=== PATIENT | male | born 1960 ===

== ENCOUNTER 2016-11-19 13:47 | Emergency (ER) | payer BC ==
--- NOTE | 2016-11-19 15:07 | ED ---
Skin Complaint - HPI Summary HPI Summary: 56 male presents with complaints of redness and itchiness to the right breast that began 2 days ago and has been worsening. Patient states there was scab that he scratched off and does not know if he was possibly bit by a bug. Since scratching scab off he has had increased redness and itching to the area. No complaint of rash elsewhere. Has had similar episode on back a while back. Denies taking any medication for his symptoms. Denies fever/chills, lethargy or joint pain. Denies being bit by tick. No other complaints. States he tried squeezing it however nothing came out. - History of Current Complaint Chief Complaint: EDRashSkinAbscess Time Seen by Provider: 11/19/16 14:16 Stated Complaint: RT CHEST REDNESS/ITCHING Hx Obtained From: Patient Onset/Duration: Started Days Ago - 2 Skin Exposure Onset/Duration: Days Ago - 3-4 Timing: Constant Onset Severity: Mild Current Severity: Moderate Pain Intensity: 3 Pain Scale Used: 0-10 Numeric Skin Location: Discrete - right breast/nipple Character: Swelling, Pruritus, Redness Aggravating Symptom(s): Nothing Alleviating Symptom(s): Nothing Associated Signs & Symptoms: Negative Related History: Possible Reaction to: Insect - Allergy/Home Medications Allergies/Adverse Reactions: Allergies Allergy/AdvReac Type Severity Reaction Status Date / Time No Known Allergies Allergy Verified 11/19/16 14:20 PMH/Surg Hx/FS Hx/Imm Hx Endocrine/Hematology History: Denies: Hx Diabetes Cardiovascular History: Denies: Hx Hypertension Respiratory History: Denies: Hx Asthma Musculoskeletal History: Denies: Hx Arthritis - Surgical History Surgery Procedure, Year, and Place: n/a - Immunization History Immunizations Up to Date: Yes Infectious Disease History: Yes Infectious Disease History: Denies: Traveled Outside the [place] in Last 30 Days - Family History Known Family History: Positive: None - Social History Alcohol Use: None Substance Use Type: Reports: None Smoking Status (MU): Never Smoked Tobacco Review of Systems Constitutional: Negative Cardiovascular: Negative Respiratory: Negative Gastrointestinal: Negative Musculoskeletal: Negative Positive: Rash Neurological: Negative All Other Systems Reviewed And Are Negative: Yes Physical Exam Triage Information Reviewed: Yes Vital Signs On Initial Exam: Initial Vitals Temp Pulse Resp BP Pulse Ox 97.7 F 55 16 115/74 98 11/19/16 14:03 11/19/16 14:03 11/19/16 14:03 11/19/16 14:03 11/19/16 14:03 Vital Signs Reviewed: Yes Appearance: Positive: Well-Appearing, No Pain Distress, Well-Nourished Skin: Positive: Warm, Skin Color Reflects Adequate Perfusion, Dry, Erythema @ - surrounding right areola/breast area without signs of abscess or discharge. non- weeping. non-blanchable. non-painful. about 2.5cm in diameter, circular. no sign of tick or bug bite at this time. is itchy.. Negative: Numb, Cyanosis @, Diaphoretic, Target Lesions, Scaly Skin/Lesions, Pale, Weeping Skin/Lesions Head/Face: Positive: Normal Head/Face Inspection Eyes: Positive: Normal, Conjunctiva Clear ENT: Positive: Hearing grossly normal Neck: Positive: Supple, Nontender Respiratory/Lung Sounds: Positive: Clear to Auscultation, Breath Sounds Present. Negative: Rales, Rhonchi, Wheezes Cardiovascular: Positive: Normal, RRR, Pulses are Symmetrical in both Upper and Lower Extremities. Negative: Murmur, Rub, Leg Edema Left, Leg Edema Right Abdomen Description: Positive: Nontender, Soft Bowel Sounds: Positive: Present Musculoskeletal: Positive: Normal, Strength/ROM Intact Neurological: Positive: Normal, Sensory/Motor Intact, Alert, Oriented to Person Place, Time Psychiatric: Positive: Normal AVPU Assessment: Alert Diagnostics - Vital Signs Vital Signs Temp Pulse Resp BP Pulse Ox 11/19/16 14:12 97.2 F 54 20 122/63 100 11/19/16 14:03 97.7 F 55 16 115/74 98 - Laboratory Lab Statement: Any lab studies that have been ordered have been reviewed, and results considered in the medical decision making process. Course/Dx - Course Course Of Treatment: Appears to be suffering from a cellulitis/mastitis. Given first dose of anitbiotic while in ED. Continue keflex at home. Educated on use of Benadryl topical cream for itching. Follow up with PCP. Aware of worsening signs and symptoms. No concern for abscess at this time. - Differential Diagnoses - Skin Complaint Differential Diagnoses: Cellulitis, Contact Dermatitis, Local Allergic Reaction , Tinea, Urticaria, Other - Diagnoses Provider Diagnoses: Cellulitis of breast of male Discharge - Discharge Plan Condition: Stable Disposition: HOME Prescriptions: Cephalexin CAP* [Keflex CAP*] 500 mg PO QID #28 cap Patient Education Materials: Cellulitis (ED), Mastitis (ED) Referrals: Jersey Mathias MD [Primary Care Provider] - Additional Instructions: Take prescribed antibiotic as directed until entire dose is finished. Use topical Benadryl cream sold over the counter to apply on rash for itching and inflammation. Follow up with primary care provider. Seek medical attention if symptoms worsen or do not improve. Try to not touch the area of the rash.
[2016-11-19] MEDS ORDERED: Cephalexin CAP* 500 MG PO ONE (15:09)
[2016-11-19 15:23] VITALS: BP 112/76
== END 2016-11-19 15:20 | disposition home or self-care (01) ==
LOC: ED 13:47
DX: L03.313 Cellulitis of chest wall (principal)
CPT/HCPCS: 99282; A9270-GY

== ENCOUNTER 2016-11-23 14:26 | Emergency (ER) | payer BC ==
[2016-11-23 14:58] VITALS: BP 125/75
--- NOTE | 2016-11-23 15:11 | UC ---
Skin Complaint HPI - HPI Summary HPI Summary: PT SEEN IN ED 4 DAYS AGO ON 11/19 AND DIAGNOSED WITH CELLULITIS OF RIGHT BREAST. TX WITH KEFLEX. PT HERE BECAUSE IT IS NOT IMPROVING. IT IS ACTUALLY BIGGER THAN WHEN HE WENT TO THE ED 4 DAYS AGO. DENIES FEVER, FATIGUE, CRUZ, JOINT PAIN OR MUSCLE ACHES. NO TICK BITES HE IS AWARE OF. - History of Current Complaint Chief Complaint: UCSkin Time Seen by Provider: 11/23/16 15:07 Stated Complaint: SKIN ISSUE Hx Obtained From: Patient Onset/Duration: Gradual Onset, Lasting Days, Still Present Timing: Constant Onset Severity: Moderate Current Severity: Moderate Pain Intensity: 2 Pain Scale Used: 0-10 Numeric Location: Discrete - RIGHT BREAST Character: Pain, Redness Aggravating: Touch Alleviating: Nothing Associated Signs & Symptoms: Positive: Tenderness. Negative: Nausea, Difficulty Breathing, Fever, Chills, Syncope, Drainage - Allergy/Home Medications Allergies/Adverse Reactions: Allergies Allergy/AdvReac Type Severity Reaction Status Date / Time No Known Allergies Allergy Verified 11/23/16 14:57 Home Medications: Home Medications Multiple Vitamins W/ Minerals [Vitamins & Minerals] 1 tab PO DAILY 11/23/16 [ History Confirmed 11/23/16] Review of Systems Constitutional: Negative Skin: Rash Respiratory: Negative Cardiovascular: Negative Gastrointestinal: Negative All Other Systems Reviewed And Are Negative: Yes PMH/Surg Hx/FS Hx/Imm Hx Previously Healthy: Yes - Surgical History Surgical History: Yes Surgery Procedure, Year, and Place: n/a - Family History Known Family History: Positive: None - Social History Alcohol Use: None Substance Use Type: None Smoking Status (MU): Never Smoked Tobacco Physical Exam Triage Information Reviewed: Yes Appearance: Well-Appearing, No Pain Distress, Well-Nourished Vital Signs: Initial Vital Signs Temp 97.4 F 11/23/16 14:52 Pulse 63 11/23/16 14:52 Resp 16 11/23/16 14:52 BP 125/75 11/23/16 14:52 Pulse Ox 100 11/23/16 14:52 Vital Signs Reviewed: Yes Eyes: Positive: Conjunctiva Clear ENT: Positive: Hearing grossly normal Neck: Positive: Supple Respiratory: Positive: No respiratory distress, No accessory muscle use Cardiovascular: Positive: Pulses Normal Abdomen Description: Positive: Soft Musculoskeletal: Positive: No Edema Neurological: Positive: Alert Psychological: Positive: Normal Response To Family, Age Appropriate Behavior Skin: Positive: rashes - 26CM X 15CM OVAL SHAPED AREA OF ERYTHEMA RIGHT BREAST. WARM AND SLIGHTLY INDURATED. NO FLUCTUANCE OR DRAINAGE. NO CENTRAL CLEARING Course/Dx - Diagnoses Provider Diagnoses: CELLULITIS RIGHT BREAST AREA Discharge - Discharge Plan Condition: Stable Disposition: HOME Prescriptions: Doxycycline (Monohydrate) [Doxycycline Monohydrate] 1 cap PO BID #20 cap Patient Education Materials: Cellulitis (ED) Referrals: Jersey Mathias MD [Medical Doctor] - Additional Instructions: YOU ARE NOT PRESENTING WITH SYMPTOMS TYPICAL OF LYME DISEASE BUT IT IS POSSIBLE THAT YOU HAVE IT. WE WILL CHECK LYME SEROLOGY TODAY AND START YOU ON DOXY. IF LYME SCREEN IS POSITIVE WOULD EXTEND COURSE FOR 21 DAYS TOTAL. IF NEGATIVE WOULD COMPLETE 10 DAY COURSE PRESCRIBED TODAY. DOXY IS A GOOD CHOICE FOR CELLULITIS WELL SO THE REDNESS SHOULD IMPROVE. COMPLETE THE KEFLEX PRESCRIBED. CALL THE NUMBER BELOW FOR ASSISTANCE IN ESTABLISHING WITH A PCP An additional resource available to assist in finding the appropriate physician for your health care needs is [facility] ([facility]). You may contact them by calling [phone].
== END 2016-11-23 15:58 | disposition home or self-care (01) ==
LOC: UCEAST 14:26
DX: N61.0 Mastitis without abscess (principal)
CPT/HCPCS: 86617; 86618; 99212; G0463